=== PATIENT | male | born 1970 | race Caucasian/White ===

== ENCOUNTER 2017-08-13 05:45 | Day surgery (SDC) | payer OTHER ==
[~2017-08-13] VITALS: Ht 182.9 cm; Wt 105.7 kg
[~2017-08-13 05:45] MED LIST: LISINOPRIL20 MG PO
[2017-08-13 06:50] VITALS: BP 138/72
[2017-08-13] MEDS ORDERED: ONDANSETRON HCL8 MG PO (10:06)
[2017-08-13] MEDS ORDERED: COLACE100 MG PO (10:06)
[2017-08-13] MEDS ORDERED: DILAUDID4 MG PO (10:06)
[2017-08-13] MEDS ORDERED: CIPRO500 MG PO (10:06)
[2017-08-13 12:42] VITALS: BP 115/74
[2017-08-13 13:57] VITALS: BP 114/69
== END 2017-08-13 14:11 | disposition home or self-care (01) ==
LOC: SDC 05:45
DX: K42.0 Umbilical hernia with obstruction, without gangrene (principal); L72.0 Epidermal cyst; I10 Essential (primary) hypertension; E78.00 Pure hypercholesterolemia, unspecified; R00.1 Bradycardia, unspecified
CPT/HCPCS: 88304; 93005; C1781; J0690; J1170; J2250; J2405; J3010; Q0175